=== PATIENT | female | born 1955 | race Caucasian/White ===

== ENCOUNTER 2017-05-08 15:50 | Inpatient (IN) | payer MEDICAID ==
[2017-05-08 20:10] LABS: ADD MAN DIFF? NO
[2017-05-08 20:14] LABS: BASOPHILS % 0.2 % (0.0-2.0); EOSINOPHILS % 0.1 % (0.0-7.0); HEMATOCRIT 38.6 % (37.0-47.0); HEMOGLOBIN 13.4 g/dl (12.0-16.0); LYMPHOCYTES # 2.9 10^3/ul (0.8-2.9); LYMPHOCYTES % 16.8 % (15.0-51.0); MEAN CORPUSCULAR HEMOGLOBIN 30.7 pg (29.0-33.0); MEAN CORPUSCULAR HGB CONC 34.7 g/dl (32.0-37.0); MEAN CORPUSCULAR VOLUME 88.5 fl (82.0-101.0); MEAN PLATELET VOLUME 9.7 fl (7.4-10.4); MONOCYTE # 1.1 10^3/ul (0.3-0.9); MONOCYTES % 6.5 % (0.0-11.0); NEUTROPHIL # 12.9 10^3/ul (1.6-7.5); NEUTROPHILS % 75.9 % (39.0-77.0); PLATELET COUNT 284 10^3/UL (140-415); RED BLOOD COUNT 4.36 10^6/ul (4.20-5.40); RED CELL DISTRIBUTION WIDTH 11.9 % (11.5-14.5)
[2017-05-08] MEDS: morphine 4 MG/ML VIAL IV ×2 (20:21→22:24)
[2017-05-08] MEDS: ONDANSETRON 4 MG INJ IV (20:21)
[2017-05-08] MEDS: SOD CHLORIDE 0.9% 1,000 ML IV ×3 (20:22→22:27)
[2017-05-08 20:34] LABS: ALANINE AMINOTRANSFERASE 49 IU/L (13-69); ALBUMIN 4.6 g/dl (3.3-4.9); ALBUMIN/GLOBULIN RATIO 1.27; ALKALINE PHOSPHATASE 97 IU/L (42-121); ANION GAP 19 (8-16); ASPARTATE AMINO TRANSFERASE 28 IU/L (15-46); BILIRUBIN,INDIRECT 2.3 mg/dl (0-1.1); BILIRUBIN,TOTAL 2.3 mg/dl (0.2-1.3); BLOOD UREA NITROGEN 9 mg/dl (7-20); CALCIUM 9.4 mg/dl (8.4-10.2); CARBON DIOXIDE 26 mmol/L (21-31); CHLORIDE 101 mmol/L (97-110); CREATININE 0.65 mg/dl (0.44-1.00); GLUCOSE 120 mg/dl (70-220); LIPASE 52 U/L (23-300); POTASSIUM 3.8 mmol/L (3.5-5.1); SODIUM 142 mmol/L (135-144); TOTAL PROTEIN 8.2 g/dl (6.1-8.1)
[2017-05-08 21:35] LABS: ADD UMIC YES; UR ASCORBIC ACID NEGATIVE (NEGATIVE); UR BILIRUBIN (Dip) NEGATIVE (NEGATIVE); UR BLOOD (Dip) 1+ mg/dL (NEGATIVE); UR CLARITY CLEAR (CLEAR); UR COLOR YELLOW (YELLOW); UR GLUCOSE (Dip) NEGATIVE (NEGATIVE); UR KETONES (Dip) NEGATIVE (NEGATIVE); UR LEUKOCYTE ESTERASE (Dip) NEGATIVE Leu/ul (NEGATIVE); UR NITRITE (Dip) NEGATIVE (NEGATIVE); UR RBC 1 /HPF (0-5); UR SPECIFIC GRAVITY (Dip) 1.004 (1.003-1.030); UR TOTAL PROTEIN (Dip) NEGATIVE (NEGATIVE); UR UROBILINOGEN (Dip) NEGATIVE (NEGATIVE); UR WBC 1 /HPF (0-5)
[2017-05-08] MEDS: KETOROLAC 15 MG INJ IV (22:24)
[2017-05-08] MEDS: PIPER-TAZO 3.375 GM IV (PMX) 100 ML IVPB (22:24)
[2017-05-08 23:06] LABS: LACTIC ACID 0.9 mmol/L (0.5-2.0)
[2017-05-08] MEDS ORDERED: DOCUSATE SODIUM 100 MG CAP PO (23:30)
[2017-05-08] MEDS ORDERED: NACL 0.9% 3 ML SYG IV (23:30)
[2017-05-08] MEDS ORDERED: BISACODYL (EC) 5 MG TAB PO (23:30)
[2017-05-09 00:53] LABS: LACTIC ACID 0.8 mmol/L (0.5-2.0)
[2017-05-09] MEDS: SOD CHLORIDE 0.9% 1,000 ML IV ×2 (03:51→17:53)
[2017-05-09 05:16] LABS: ADD MAN DIFF? NO
[2017-05-09 05:22] LABS: WHITE BLOOD COUNT 10.6 10^3/ul (4.8-10.8)
[2017-05-09 05:22] LABS: BASOPHILS % 0.3 % (0.0-2.0); EOSINOPHILS % 0.3 % (0.0-7.0); HEMATOCRIT 36.6 % (37.0-47.0); HEMOGLOBIN 12.2 g/dl (12.0-16.0); LYMPHOCYTES % 18.6 % (15.0-51.0); MEAN CORPUSCULAR HEMOGLOBIN 30.2 pg (29.0-33.0); MEAN CORPUSCULAR HGB CONC 33.3 g/dl (32.0-37.0); MEAN CORPUSCULAR VOLUME 90.6 fl (82.0-101.0); MEAN PLATELET VOLUME 9.8 fl (7.4-10.4); MONOCYTE # 0.7 10^3/ul (0.3-0.9); MONOCYTES % 6.3 % (0.0-11.0); NEUTROPHIL # 7.9 10^3/ul (1.6-7.5); NEUTROPHILS % 74.1 % (39.0-77.0); PLATELET COUNT 255 10^3/UL (140-415); RED BLOOD COUNT 4.04 10^6/ul (4.20-5.40); RED CELL DISTRIBUTION WIDTH 11.9 % (11.5-14.5)
[2017-05-09 05:32] LABS: HEMOGLOBIN A1C 5.5 % (0-5.9)
[2017-05-09 05:39] LABS: ALANINE AMINOTRANSFERASE 736 IU/L (13-69); ALBUMIN 3.8 g/dl (3.3-4.9); ALBUMIN/GLOBULIN RATIO 1.18; ALKALINE PHOSPHATASE 193 IU/L (42-121); ANION GAP 14 (8-16); BILIRUBIN,INDIRECT 2.8 mg/dl (0-1.1); BILIRUBIN,TOTAL 3.1 mg/dl (0.2-1.3); BLOOD UREA NITROGEN 13 mg/dl (7-20); CALCIUM 8.8 mg/dl (8.4-10.2); CARBON DIOXIDE 30 mmol/L (21-31); CHLORIDE 107 mmol/L (97-110); CHOL/HDL RATIO 4.4 RATIO; CHOLESTEROL 182 mg/dl (100-200); CREATININE 0.69 mg/dl (0.44-1.00); GLUCOSE 108 mg/dl (70-220); HDL CHOLESTEROL 41 mg/dl (35-98); LDL CHOLESTEROL,CALCULATED 115 mg/dl; MAGNESIUM 2.4 mg/dl (1.7-2.5); POTASSIUM 3.7 mmol/L (3.5-5.1); SODIUM 147 mmol/L (135-144); TRIGLYCERIDES 128 mg/dl (0-149)
[2017-05-09 05:49] LABS: ASPARTATE AMINO TRANSFERASE 840 IU/L (15-46)
[2017-05-09] MEDS: PIPER-TAZO 3.375 GM IV (PMX) 100 ML IVPB ×4 (05:55→23:42)
[2017-05-09] MEDS: FLUOXETINE 20 MG CAP PO (09:31)
[2017-05-09] MEDS: ACETAMINOPHEN 325 MG TAB PO (09:32)
[2017-05-09] MEDS: morphine 2 MG INJ IV (16:53)
[2017-05-09] MEDS: clonAZEPAM 0.5 MG TAB PO (22:21)
[2017-05-10] MEDS: PIPER-TAZO 3.375 GM IV (PMX) 100 ML IVPB ×3 (05:05→17:36)
[2017-05-10 05:16] LABS: ADD MAN DIFF? NO
[2017-05-10 05:26] LABS: BASOPHILS % 0.4 % (0.0-2.0); EOSINOPHILS # 0.1 10^3/ul (0.0-0.5); EOSINOPHILS % 0.8 % (0.0-7.0); HEMATOCRIT 35.1 % (37.0-47.0); HEMOGLOBIN 11.7 g/dl (12.0-16.0); LYMPHOCYTES # 2.5 10^3/ul (0.8-2.9); LYMPHOCYTES % 21.6 % (15.0-51.0); MEAN CORPUSCULAR HEMOGLOBIN 30.7 pg (29.0-33.0); MEAN CORPUSCULAR HGB CONC 33.3 g/dl (32.0-37.0); MEAN CORPUSCULAR VOLUME 92.1 fl (82.0-101.0); MEAN PLATELET VOLUME 9.6 fl (7.4-10.4); MONOCYTE # 0.7 10^3/ul (0.3-0.9); MONOCYTES % 6.4 % (0.0-11.0); NEUTROPHILS % 70.4 % (39.0-77.0); PLATELET COUNT 254 10^3/UL (140-415); RED BLOOD COUNT 3.81 10^6/ul (4.20-5.40); RED CELL DISTRIBUTION WIDTH 11.9 % (11.5-14.5)
[2017-05-10 05:26] LABS: WHITE BLOOD COUNT 11.3 10^3/ul (4.8-10.8)
[2017-05-10 05:53] LABS: ALANINE AMINOTRANSFERASE 403 IU/L (13-69); ALBUMIN 3.7 g/dl (3.3-4.9); ALBUMIN/GLOBULIN RATIO 1.23; ALKALINE PHOSPHATASE 158 IU/L (42-121); ANION GAP 17 (8-16); ASPARTATE AMINO TRANSFERASE 159 IU/L (15-46); BILIRUBIN,INDIRECT 1.7 mg/dl (0-1.1); BILIRUBIN,TOTAL 1.7 mg/dl (0.2-1.3); BLOOD UREA NITROGEN 12 mg/dl (7-20); CALCIUM 8.5 mg/dl (8.4-10.2); CARBON DIOXIDE 28 mmol/L (21-31); CHLORIDE 108 mmol/L (97-110); GLUCOSE 88 mg/dl (70-220); MAGNESIUM 2.3 mg/dl (1.7-2.5); POTASSIUM 3.9 mmol/L (3.5-5.1); SODIUM 149 mmol/L (135-144); TOTAL PROTEIN 6.7 g/dl (6.1-8.1)
[2017-05-10] MEDS: FLUOXETINE 20 MG CAP PO (08:27)
[2017-05-10 10:25] LABS: HAAIG REFLEX REFLEX FILED
[2017-05-10] MEDS: SOD CHLORIDE 0.9% 1,000 ML IV (11:23)
[2017-05-10 12:26] LABS: INR 1.14; PROTIME 14.8 Sec (11.9-14.9); PT RATIO 1.2
[2017-05-10 13:27] LABS: HEPATITIS B SURFACE ANTIGEN NEGATIVE (NEGATIVE)
[2017-05-10 13:45] LABS: HEPATITIS B CORE ANTIBODY NEGATIVE (NEGATIVE); HEPATITIS C VIRAL ANTIBODY NEGATIVE (NEGATIVE)
[2017-05-10] MEDS ORDERED: FENTAnyl 50 MCG/ML VIAL (18:48)
[2017-05-10] MEDS ORDERED: MIDAZOLAM 1 MG/ML 2 ML INJ (18:48)
[2017-05-10] MEDS ORDERED: PROPOFOL 20 ML (18:48)
[2017-05-10] MEDS ORDERED: METOCLOPRAMIDE 10 MG INJ (18:48)
[2017-05-10] MEDS ORDERED: SUCCINYLCHOLINE CHLORIDE 100 MG/5 ML SYG IV (19:00)
[2017-05-10] MEDS ORDERED: EPHEDrine SULFATE 50 MG/5 ML SYG (19:29)
[2017-05-10] MEDS ORDERED: HYDROmorphONE (0.2 MG/ML) 10ML SYG IV ×3 (20:00)
[2017-05-10] MEDS ORDERED: ONDANSETRON 4 MG INJ IV (20:00)
[2017-05-10] MEDS ORDERED: OXYCODONE/ACETAMINOPHEN (5/325) TAB PO (20:00)
[2017-05-10] MEDS ORDERED: ONDANSETRON 4 MG INJ (20:17)
[2017-05-10] MEDS: clonAZEPAM 0.5 MG TAB PO (21:43)
[2017-05-11] MEDS: PIPER-TAZO 3.375 GM IV (PMX) 100 ML IVPB ×4 (00:05→18:16)
[2017-05-11] MEDS: SOD CHLORIDE 0.9% 1,000 ML IV ×2 (01:07→05:44)
[2017-05-11 05:19] LABS: ADD MAN DIFF? NO
[2017-05-11 05:23] LABS: BASOPHILS % 0.3 % (0.0-2.0); EOSINOPHILS # 0.1 10^3/ul (0.0-0.5); EOSINOPHILS % 0.5 % (0.0-7.0); HEMATOCRIT 32.8 % (37.0-47.0); HEMOGLOBIN 11.2 g/dl (12.0-16.0); LYMPHOCYTES # 1.9 10^3/ul (0.8-2.9); LYMPHOCYTES % 19.7 % (15.0-51.0); MEAN CORPUSCULAR HEMOGLOBIN 30.6 pg (29.0-33.0); MEAN CORPUSCULAR HGB CONC 34.1 g/dl (32.0-37.0); MEAN CORPUSCULAR VOLUME 89.6 fl (82.0-101.0); MEAN PLATELET VOLUME 9.6 fl (7.4-10.4); MONOCYTE # 0.7 10^3/ul (0.3-0.9); MONOCYTES % 6.9 % (0.0-11.0); NEUTROPHIL # 7.1 10^3/ul (1.6-7.5); PLATELET COUNT 282 10^3/UL (140-415); RED BLOOD COUNT 3.66 10^6/ul (4.20-5.40); RED CELL DISTRIBUTION WIDTH 11.4 % (11.5-14.5)
[2017-05-11 05:23] LABS: WHITE BLOOD COUNT 9.9 10^3/ul (4.8-10.8)
[2017-05-11 06:26] LABS: ALANINE AMINOTRANSFERASE 335 IU/L (13-69); ALBUMIN 3.5 g/dl (3.3-4.9); ALBUMIN/GLOBULIN RATIO 1.45; ALKALINE PHOSPHATASE 193 IU/L (42-121); ANION GAP 16 (8-16); ASPARTATE AMINO TRANSFERASE 141 IU/L (15-46); BLOOD UREA NITROGEN 9 mg/dl (7-20); CALCIUM 8.6 mg/dl (8.4-10.2); CARBON DIOXIDE 29 mmol/L (21-31); CHLORIDE 107 mmol/L (97-110); CREATININE 0.56 mg/dl (0.44-1.00); GLUCOSE 99 mg/dl (70-220); POTASSIUM 4.3 mmol/L (3.5-5.1); SODIUM 148 mmol/L (135-144); TOTAL PROTEIN 5.9 g/dl (6.1-8.1)
[2017-05-11] MEDS: ONDANSETRON 4 MG INJ IV (08:24)
[2017-05-11] MEDS: FLUOXETINE 20 MG CAP PO (08:24)
[2017-05-11] MEDS: morphine 2 MG INJ IV (09:53)
[2017-05-11] MEDS ORDERED: ONDANSETRON 4 MG INJ IV (16:00)
[2017-05-11] MEDS: clonAZEPAM 0.5 MG TAB PO (21:11)
[2017-05-12] MEDS: PIPER-TAZO 3.375 GM IV (PMX) 100 ML IVPB ×4 (00:13→17:34)
[2017-05-12] MEDS: SOD CHLORIDE 0.9% 1,000 ML IV ×2 (00:14→15:09)
[2017-05-12 05:15] LABS: ADD MAN DIFF? NO
[2017-05-12 05:19] LABS: BASOPHILS % 0.4 % (0.0-2.0); EOSINOPHILS # 0.1 10^3/ul (0.0-0.5); EOSINOPHILS % 0.6 % (0.0-7.0); HEMATOCRIT 35.4 % (37.0-47.0); HEMOGLOBIN 11.9 g/dl (12.0-16.0); LYMPHOCYTES # 1.6 10^3/ul (0.8-2.9); LYMPHOCYTES % 19.3 % (15.0-51.0); MEAN CORPUSCULAR HEMOGLOBIN 29.6 pg (29.0-33.0); MEAN CORPUSCULAR HGB CONC 33.6 g/dl (32.0-37.0); MEAN CORPUSCULAR VOLUME 88.1 fl (82.0-101.0); MEAN PLATELET VOLUME 9.4 fl (7.4-10.4); MONOCYTE # 0.6 10^3/ul (0.3-0.9); MONOCYTES % 7.6 % (0.0-11.0); NEUTROPHIL # 5.8 10^3/ul (1.6-7.5); NEUTROPHILS % 71.6 % (39.0-77.0); PLATELET COUNT 312 10^3/UL (140-415); RED BLOOD COUNT 4.02 10^6/ul (4.20-5.40); RED CELL DISTRIBUTION WIDTH 11.4 % (11.5-14.5)
[2017-05-12 05:19] LABS: WHITE BLOOD COUNT 8.1 10^3/ul (4.8-10.8)
[2017-05-12 05:46] LABS: ALANINE AMINOTRANSFERASE 230 IU/L (13-69); ALBUMIN 3.8 g/dl (3.3-4.9); ALBUMIN/GLOBULIN RATIO 1.26; ALKALINE PHOSPHATASE 161 IU/L (42-121); ANION GAP 16 (8-16); ASPARTATE AMINO TRANSFERASE 56 IU/L (15-46); BILIRUBIN,INDIRECT 0.7 mg/dl (0-1.1); BILIRUBIN,TOTAL 0.7 mg/dl (0.2-1.3); BLOOD UREA NITROGEN 5 mg/dl (7-20); CALCIUM 8.8 mg/dl (8.4-10.2); CARBON DIOXIDE 28 mmol/L (21-31); CHLORIDE 105 mmol/L (97-110); CREATININE 0.52 mg/dl (0.44-1.00); GLUCOSE 101 mg/dl (70-220); POTASSIUM 3.1 mmol/L (3.5-5.1); SODIUM 146 mmol/L (135-144); TOTAL PROTEIN 6.8 g/dl (6.1-8.1)
[2017-05-12] MEDS: FLUOXETINE 20 MG CAP PO (08:41)
[2017-05-12] MEDS: POTASSIUM CHLORIDE (SR) 20 MEQ TAB PO ×2 (11:40→15:07)
[2017-05-12 16:32] LABS: ALPHA FETOPROTEIN 3.04 IU/L (0.00-7.21)
[2017-05-12 16:33] LABS: CANCER ANTIGEN 19-9 14.1 U/ml (0.0-37.0)
[2017-05-12] MEDS: clonAZEPAM 0.5 MG TAB PO (21:09)
[2017-05-13] MEDS: PIPER-TAZO 3.375 GM IV (PMX) 100 ML IVPB ×3 (00:43→12:08)
[2017-05-13] MEDS: SOD CHLORIDE 0.9% 1,000 ML IV (04:28)
[2017-05-13 06:05] LABS: ALANINE AMINOTRANSFERASE 160 IU/L (13-69); ALBUMIN 3.5 g/dl (3.3-4.9); ALBUMIN/GLOBULIN RATIO 1.09; ALKALINE PHOSPHATASE 127 IU/L (42-121); ANION GAP 14 (8-16); ASPARTATE AMINO TRANSFERASE 34 IU/L (15-46); BILIRUBIN,INDIRECT 0.6 mg/dl (0-1.1); BILIRUBIN,TOTAL 0.6 mg/dl (0.2-1.3); BLOOD UREA NITROGEN 8 mg/dl (7-20); CALCIUM 8.9 mg/dl (8.4-10.2); CARBON DIOXIDE 29 mmol/L (21-31); CHLORIDE 105 mmol/L (97-110); CREATININE 0.57 mg/dl (0.44-1.00); GLUCOSE 97 mg/dl (70-220); POTASSIUM 3.6 mmol/L (3.5-5.1); SODIUM 144 mmol/L (135-144); TOTAL PROTEIN 6.7 g/dl (6.1-8.1)
[2017-05-13] MEDS: FLUOXETINE 20 MG CAP PO (08:26)
[2017-05-13] MEDS: POTASSIUM CHLORIDE (SR) 20 MEQ TAB PO (13:18)
== END 2017-05-13 14:04 | disposition home or self-care (01) | DRG 392 ==
LOC: MS1 22:57 → E/R 15:50
PROVIDERS: Family Medicine
PROC: 0F798DZ Dilation of Common Bile Duct with Intraluminal Device, Via Natural or Artificial Opening Endoscopic (ICD-10-PCS; principal; 2017-05-10 17:30)
DX: K57.32 Diverticulitis of large intestine without perforation or abscess without bleeding (principal); F41.9 Anxiety disorder, unspecified; F17.210 Nicotine dependence, cigarettes, uncomplicated; F32.9 Major depressive disorder, single episode, unspecified; R11.2 Nausea with vomiting, unspecified; Z90.49 Acquired absence of other specified parts of digestive tract; Z90.710 Acquired absence of both cervix and uterus
CPT/HCPCS: 36415; 74176; 74181; 74330; 80053; 80061; 81001; 82105; 83036; 83605; 83690; 83735; 84443; 85025; 85610; 86301; 86704; 86709; 86803; 87040; 87340; 88104; 88305; 96374; 96375; 96376; 99285-25

== ENCOUNTER 2017-08-06 09:48 | Day surgery (SDC) | payer OTHER, MEDICAID ==
[2017-08-06] MEDS ORDERED: MIDAZOLAM 1 MG/ML 2 ML INJ (12:08)
[2017-08-06] MEDS ORDERED: FENTAnyl 50 MCG/ML VIAL (12:08)
== END 2017-08-06 16:30 | disposition home or self-care (01) ==
LOC: GIL 09:48
DX: Z12.11 Encounter for screening for malignant neoplasm of colon (principal); K57.90 Diverticulosis of intestine, part unspecified, without perforation or abscess without bleeding; K64.4 Residual hemorrhoidal skin tags
CPT/HCPCS: 45378; 93005

== ENCOUNTER 2017-08-24 09:16 | Day surgery (SDC) | payer OTHER ==
[2017-08-24 11:30] LABS: ANION GAP 12 (8-16); BLOOD UREA NITROGEN 15 mg/dl (7-20); CARBON DIOXIDE 26 mmol/L (21-31); CHLORIDE 110 mmol/L (97-110); CREATININE 0.59 mg/dl (0.44-1.00); GLUCOSE 98 mg/dl (70-220); POTASSIUM 4.1 mmol/L (3.5-5.1); SODIUM 144 mmol/L (135-144)
[2017-08-24] MEDS ORDERED: IOHEXOL 300MG/ML 30 ML BTL (11:30)
[2017-08-24] MEDS ORDERED: FENTAnyl 50 MCG/ML VIAL (11:43)
[2017-08-24] MEDS ORDERED: MIDAZOLAM 1 MG/ML 2 ML INJ (11:44)
[2017-08-24] MEDS ORDERED: LIDOCAINE 2% (SDV) 5 ML INJ (12:19)
[2017-08-24] MEDS ORDERED: PROPOFOL 20 ML (12:19)
[2017-08-24] MEDS ORDERED: ONDANSETRON 4 MG INJ (12:20)
[2017-08-24] MEDS ORDERED: ROCURONIUM 50 MG INJ (12:20)
[2017-08-24] MEDS ORDERED: NEOSTIGMINE 3 MG/3 ML SYRINGE (12:20)
[2017-08-24] MEDS ORDERED: GLYCOPYRROLATE 0.4 MG INJ (12:20)
[2017-08-24] MEDS ORDERED: HYDROmorphONE 1 MG/5 ML IV SYRINGE IV ×2 (13:00)
[2017-08-24] MEDS ORDERED: ONDANSETRON 4 MG INJ IV (13:00)
[2017-08-24] MEDS ORDERED: METOCLOPRAMIDE 10 MG INJ IV (13:00)
[2017-08-24] MEDS ORDERED: LABETALOL HCL 20MG INJ IV (13:00)
[2017-08-24] MEDS ORDERED: FENTAnyl 50 MCG/ML VIAL IV (13:00)
[2017-08-24] MEDS ORDERED: hydrALAzine 20 MG INJ IV (13:00)
[2017-08-24] MEDS ORDERED: MEPERIDINE 25 MG INJ IV (13:00)
[2017-08-24] MEDS ORDERED: DIPHENHYDRAMINE 50 MG INJ IV (13:00)
== END 2017-08-24 14:03 | disposition home or self-care (01) ==
LOC: GIL 09:16 → SDS 09:16 → GIL 14:03
DX: Z46.59 Encounter for fitting and adjustment of other gastrointestinal appliance and device (principal); E78.5 Hyperlipidemia, unspecified; E66.9 Obesity, unspecified; Z68.33 Body mass index [BMI] 33.0-33.9, adult
CPT/HCPCS: 43275; 74330; 80048